=== PATIENT | female | born 1950 | race Caucasian/White ===

== ENCOUNTER → 2017-02-25 | Outpatient (CLI) | payer OTHER ==
--- NOTE | 2017-02-26 08:37 | RADIOLOGY REPORT (SQ) ---
EXAM DESCRIPTION: MRI ABDOMEN COMBO COMPLETED DATE/TIME: 02/25/2017 5:29 pm REASON FOR STUDY: ADRENAL MASS, RIGHT E27.9 DISORDER OF ADRENAL GLAND, UNSPECIFIED COMPARISON: [facility] abdominal ultrasound 02/18/2017, CT abdomen 02/20/2017 TECHNIQUE: Multiplanar multisequence imaging performed without and with contrast including sagittal, axial and coronal T2, axial T1, axial gradient fat sat T1, axial, sagittal and coronal fat sat T1 po st contrast. CONTRAST TYPE AND DOSE: 20 mL Multihance. RENAL FUNCTION: Estimated GFR 59 LIMITATIONS: None. FINDINGS: LIVER: Normal size. No masses or dilated ducts. CBD normal. SPLEEN: Normal size. No focal lesions. PANCREAS: No masses. No adjacent inflammation or peripancreatic fluid collections. Pancreatic duct no t dilated. GALLBLADDER: No masses. No stones. No gallbladder wall thickening or pericholecystic fluid. [place] es suspected on prior CT and ultrasound are not apparent by MRI. ADRENAL GLANDS: On the right side, a 2.4 cm AP x 2 cm transverse x 2.3 cm craniocaudad adrenal nodule is present which has decreased T1 weighted signal on the out of phase imaging, characteristic for an adenoma. Left adrenal gland is unremarkable. RIGHT KIDNEY AND URETER: No masses. No hydronephrosis. Less than 1 cm right midpole cortical cyst. LEFT KIDNEY AND URETER: No masses. No hydronephrosis. AORTA AND VESSELS: No aneurysm. No dissection. Renal arteries, SMA, celiac without stenosis. RETROPERITONEUM: No retroperitoneal adenopathy, hemorrhage or masses. BOWEL: Not well seen ABDOMINAL WALL AND PERITONEUM: No hernias. No free fluid. BONES: Degenerative disc changes with vacuum disc phenomenon at L5-S1 OTHER: No other significant finding. IMPRESSION: 2.4 cm right adrenal adenoma TECHNICAL DOCUMENTATION: JOB ID: [id number] [employer]- All Rights Reserved
== END ==
LOC: RAD 15:38
PROVIDERS: ATTEND Nurse Practitioner
DX: D35.01 Benign neoplasm of right adrenal gland (principal)
CPT/HCPCS: 82565; 74183; A9576